=== PATIENT | male | born 1980 | race Caucasian/White ===

== ENCOUNTER 2017-03-06 03:56 | Emergency (ER) | payer MEDICAID, OTHER ==
[~2017-03-06] VITALS: Ht 185.4 cm; Wt 75.0 kg
[2017-03-06] MEDS ORDERED: ONDANSETRON HCL 4MG/2ML VIAL IV STA (05:27)
[2017-03-06] MEDS ORDERED: METHYLPREDNISOLONE SOD SUCC 125 MG/2 ML VIAL IV STA (05:27)
[2017-03-06] MEDS ORDERED: SODIUM CHLORIDE 0.9% 1,000 ML IV ONE (05:27)
[2017-03-06] MEDS ORDERED: MORPHINE SULFATE 4 MG/ML CPJ (NOT FOR IM USE) IV STA (05:27)
[2017-03-06] MEDS ORDERED: LEVOFLOXACIN 750MG PREMIX 150 ML IV ONE (05:30)
[2017-03-06] MEDS ORDERED: IPRATROPIUM/ALBUTEROL 0.5-3(2.5)MG/3ML NEB HHN ONE (05:30)
[2017-03-06 05:55] LABS: HEMATOCRIT. 38.5 % (42.0-52.0); HEMOGLOBIN. 12.6 g/dL (14.0-18.0); MEAN CORPUSCULAR HEMOGLOBIN 25.4 pg (28.0-32.0); MEAN CORPUSCULAR VOLUME 77.5 fL (80.0-94.0); MEAN PLATELET VOLUME 8.5 fl (7.4-10.4); PLATELET 225 x1000/uL (130-400); RED BLOOD CELL COUNT 4.97 mill/uL (4.7-6.1); RED CELL DISTRIBUTION WIDTH 14.6 % (11.6-14.6)
[2017-03-06 06:13] LABS: CARBON DIOXIDE 27 mEq/L (21-32); CHLORIDE 104 mEq/L (98-107); CREATINE KINASE 219 IU/L (39-308); TROPONIN I < 0.02 ng/mL (0.00-0.04)
[2017-03-06 06:56] LABS: PLATELET ESTIMATE NORMAL
[2017-03-06] MEDS ORDERED: LEVOFLOXACIN 250MG TABLET PO ONE (08:30)
[2017-03-06 08:40] VITALS: BP 117/61
== END 2017-03-06 09:35 | disposition home or self-care (01) ==
LOC: ER 03:56
DX: J40 Bronchitis, not specified as acute or chronic (principal); R07.89 Other chest pain; E05.90 Thyrotoxicosis, unspecified without thyrotoxic crisis or storm; F17.210 Nicotine dependence, cigarettes, uncomplicated; F12.10 Cannabis abuse, uncomplicated
CPT/HCPCS: 36415; 71010; 80053; 82550; 83605; 83880; 84443; 84484; 85025; 87040; 96361; 96365; 96375; 99285; J2270; J2405; J2930; J7030; Z7610; J7620

== ENCOUNTER 2017-04-10 01:24 | Emergency (ER) | payer MEDICAID ==
[~2017-04-10] VITALS: Ht 185.4 cm; Wt 78.0 kg
[~2017-04-10 01:24] MED LIST: BACITRACIN ZINC OINT UDPKT TOP ONE; KETOROLAC 30MG/ML VIAL IM ONE; LIDOCAINE HCL 1%/EPI 1:200,000 30 ML VIAL MC ONE; TETANUS, DIPHTHERIA, PERTUSSIS VAC/PF 0.5ML (>7YR OLD) IM ONE
[2017-04-10 02:15] VITALS: BP 136/98
== END 2017-04-10 02:15 | disposition home or self-care (01) ==
LOC: ER 01:24
DX: K13.0 Diseases of lips (principal); E78.00 Pure hypercholesterolemia, unspecified
CPT/HCPCS: 96372; 99284; J1885; Z7610; 90715